=== PATIENT | male | born 1995 | race Caucasian/White ===

== ENCOUNTER 2017-04-14 21:06 | Emergency (ER) | payer MEDICAID ==
[~2017-04-14] VITALS: Ht 170.2 cm; Wt 53.9 kg
[2017-04-14 21:09] VITALS: BP 104/66
== END 2017-04-14 22:27 | disposition home or self-care (01) ==
LOC: ED 22:20
DX: G89.11 Acute pain due to trauma (principal); M25.531 Pain in right wrist; M25.532 Pain in left wrist; W19.XXXA Unspecified fall, initial encounter; Y93.67 Activity, basketball; Y99.8 Other external cause status; Y92.328 Other athletic field as the place of occurrence of the external cause
CPT/HCPCS: 99284